=== PATIENT | male | born 1995 | race Caucasian/White ===

== ENCOUNTER 2024-05-26 09:06 | Emergency (ER) | payer OTHER, SELFPAY ==
[2024-05-26 09:11] VITALS: BP 145/94; PULSE 140; RESP 26; TEMP 37.3; O2SAT 99; BMI 21.7
--- NOTE | 2024-05-26 10:00 | ECG_ITS ---
Test Reason : TACHYCARDIA Blood Pressure : / mmHG Vent. Rate : 108 BPM Atrial Rate : 108 BPM P-R Int : 140 ms QRS Dur : 084 ms QT Int : 328 ms P-R-T Axes : 087 083 043 degrees QTc Int : 439 ms Sinus tachycardia Biatrial enlargement Abnormal ECG No previous ECGs available Referred By: Fabiano Herzog Electronically Signed By:Yaya Núñez
[2024-05-26] MEDS: LORazepam 1 MG TABLET 2 MG PO (10:05)
[2024-05-26 10:06] VITALS: PULSE 115; O2SAT 99
--- NOTE | 2024-05-26 10:21 | ED_ITS ---
HPI - General Adult General Chief complaint: Ear Problems Stated complaint: hearing noises ? Time Seen by Provider: 05/26/24 09:23 Source: patient Mode of arrival: ambulatory Limitations: no limitations History of Present Illness ED Provider: Fabiano Herzog PA-C HPI narrative: 28-year-old male severe anxiety presents to ED for feeling anxious and hearing high pitch ringing in his ears for the past 4 days. Patient denies any suicidal or homicidal ideation. Patient states being without his anxiety meds for awhile. Patient states his therapist all the way in [place]. Patient denies any recent trauma. Patient denies any auditory/visual hallucinations. Patient is crying hysterically in triage and shaking. Patient denies any illicit drug use. Patient states just smoke marijuana from his dispenser. Patient denies any history of alcohol abuse. Patient states he has had tendinitis with his anxiety exacerbation before in the past and was informed by his psychiatrist and therapist the tinnitus were anxiety induced. Related Data Previous Rx's ?Medication ?Instructions ?Recorded hydroxyzine HCl 50 mg tablet 50 mg PO TID PRN anxiety #30 tabs 05/26/24 Allergies Allergy/AdvReac Type Severity Reaction Status Date / Time No Known Allergies Allergy Verified 05/26/24 09:14 Review of Systems Review of Systems: Anxious ringing ears Yes all other systems are reviewed and are negative PMFSH Social History Social History Advance Directives: No Advance Directives Information Provided: No Physical Exam ED Vital Signs: Vital Signs - 24 hr 05/26/24 09:11 05/26/24 10:06 05/26/24 12:01 Temperature 99.1 F 98.0 F Pulse Rate 140 H 115 H 118 H Respiratory Rate 26 H 16 Blood Pressure 145/94 H 140/59 H Pulse Oximetry 99 99 99 Oxygen Delivery Method Room Air Room Air 05/26/24 12:48 Temperature 98.0 F Pulse Rate 118 H Respiratory Rate 16 Blood Pressure 140/59 H Pulse Oximetry 99 Oxygen Delivery Method Room Air BMI result Body Mass Index 21.7 Const General: cooperative, healthy appearing, comfortable, no acute distress, well developed, alert, awake and Physically active Orientation/consciousness: patient oriented x3 HENMT Head: Yes normal to inspection, Yes No palpable skull fracture present, Yes nor mocephalic, Yes atraumatic and No abrasion Ears: hearing grossly normal bilaterally, external ears normal, TM's normal bilaterally, TM normal on the left, EAC's normal, mastoids normal and no periauricular adenopathy Throat: Yes posterior oropharynx normal, Yes tonsils normal and Yes uvula midline Eyes General: appearance normal, both eyes and all related structures Neck Neck: Yes normal visual inspection, Yes full ROM, Yes no lymphadenopathy, Yes no meningeal signs, Yes trachea midline, Yes supple, No anterior neck swelling and No tender Chest Chest palpation & inspection: normal inspection of the chest and normal palpation of entire chest wall Resp Effort & Inspection: normal respiratory effort and able to speak in complete sentences Auscultation: clear to auscultation bilaterally Cardio Jugular venous distension: no JVD Heart sounds: S1 normal heart sound present and S2 normal heart sound present GI Inspection: Yes normal to inspection Palpation (GI): Soft to palpation, not firm, nontender, no guarding and not rigid General: No CVA tenderness and Yes no CVA tenderness Back/Spine/Pelvis Back: no CVA tenderness, No CVA tenderness and No back tenderness Skin General skin exam: no rashes or lesions noted, elasticity normal and turgor normal Neuro General: patient oriented x3, gait normal, tone normal, moves all extremities, Normal light touch and pain sensation, no meningeal signs, no focal motor deficits, CN's II-XI intact bilaterally and normal sensation to monofilament Extrem General: Yes normal to inspection, Yes full ROM and Yes capillary refill normal Psych Appearance: grossly normal, well kempt and not disheveled Medications Administered Discontinued Medications Generic Name Dose Route Start Last Admin Trade Name Freq PRN Reason Stop Dose Admin Lorazepam 2 mg 05/26/24 09:43 05/26/24 10:05 Lorazepam 1 Mg Tablet PO 05/26/24 09:44 2 mg ONCE ONE Administration Medical Decision Making Medical Decision Making MDM Narrative: 28-year-old male symptoms due to anxiety. Patient has had ringing in the ear before when he has anxiety exacerbation and what informed by his primary care providers and psychiatrist therapist that is due to anxiety. Patient has no neuro deficits. Not suspecting stroke any central ischemia. Patient hand shaking, anxious, crying and nervous. Will give Ativan. Not suicidal or homicidal. No need for care team. NIH score is 0. No need for head CT scan. EKG only shows sinus tach. Patient tachycardic due to anxiety. 12;28pm: Patient given list of local therapists and counseling providers do with his anxiety. Patient feeling better after Ativan. Patient will be discharged with Atarax. No need for any labs or head imaging. Not suspecting any brain mass, stroke, posterior cerebellar stroke, electrolyte deficiency, MN, PE, rhabdomyolysis, neuro issues, or cardiopulmonary etiology.. Patient explained worrisome signs and informed to return to the ED immediately. Patient not in any alcohol, benzo, or narcotic withdrawal. Patient no longer crying and feels calm. Differential Diagnosis Differential Diagnoses: The differential diagnosis associated with the presentation includes (Anxiety, tinnititus) Admission/Observation Consideration of admission/observation: Escalation of care including admission/observation considered Independent Historian Clinical information obtained from an independent historian. History obtained from or confirmed by: Other (Patient) External Record Review External record reviewed: Other (Provider) Prescription Management I considered prescription management with: Other (Atarax) Discharge Plan Discharge Clinical Impression: Tinnitus, Anxiety Patient Disposition: Home, Self-Care Instructions: Anxiety (ED), Tinnitus (ED) Additional Instructions: You were given a list of therapists and counseling providers to for your anxiety. You will be discharged with Atarax for anxiety. You will need follow- up with primary care provider and therapist to be given controlled substances just says Ativan for anxiety. Return to the ED immediately for any suicidal/homicidal ideation, auditory/visual hallucinations, nausea vomiting, headache, dizziness, ear pain, severe ringing in the ear, slurred speech, facial droop, paralysis of extremities, loss of vision, or any other concerning symptoms. Prescriptions: New hydroxyzine HCl 50 mg tablet 50 mg PO TID PRN (Reason: anxiety) Qty: 30 0RF Referrals: [facility] [Provider Group] (Anxiety) Yayo Mckinnon [Physician] - ([place]) Interventions: ED Discharge Assessment Last Done: 05/26/24 12:48 Discharge Date/Time: 05/26/24 12:49 Print Language: Spanish
[2024-05-26 12:01] VITALS: BP 140/59; PULSE 118; RESP 16; TEMP 36.7; O2SAT 99
[2024-05-26 12:48] VITALS: BP 140/59; PULSE 118; RESP 16; TEMP 36.7; O2SAT 99
== END 2024-05-26 12:49 | disposition home or self-care (01) ==
PROVIDERS: Emergency Provider Student in an Organized Health Care Education/Training Program
DX: H93.13 Tinnitus, bilateral (principal); F41.9 Anxiety disorder, unspecified; R00.0 Tachycardia, unspecified
CPT/HCPCS: 93005; 99283

== ENCOUNTER → 2024-05-26 10:00 | Outpatient (BNV) | payer OTHER, SELFPAY | PROVIDERS: Emergency Provider Student in an Organized Health Care Education/Training Program; Visit Provider Internal Medicine Cardiovascular Disease | DX: R00.0 Tachycardia, unspecified (principal) | CPT/HCPCS: 93010 ==

== ENCOUNTER 2024-09-20 13:54 | Outpatient (RCR) | payer OTHER, SELFPAY | END 2024-09-20 23:59 | disposition home or self-care (01) | LOC: HO.PHPA 13:54 | PROVIDERS: Visit Provider Psychiatry & Neurology Psychiatry | DX: F43.10 Post-traumatic stress disorder, unspecified (principal); F31.9 Bipolar disorder, unspecified; F41.1 Generalized anxiety disorder ==